=== PATIENT | female | born 1945 | race Caucasian/White ===

== ENCOUNTER 2019-01-04 13:33 | Outpatient (CLI) | payer MEDICARE ==
--- NOTE | 2019-01-04 15:17 | BD ---
DEXA BONE DENSITY SCAN: DATE: 01/04/2019. COMPARISON: None. HISTORY: Postmenopausal female undergoing screening for osteoporosis. FINDINGS: Lumbar Spine: BMD (g/cm2) L1 0.842 T-Score: -1.3 L2 0.857 T-Score: -1.6 L3 0.902 T-Score: -1.7 L4 0.930 T-Score: -1.2 L1-L4 0.888 T-Score: -1.4 Femoral Neck: 0.657 T-Score: -1.7 Total Femur: 0.839 T-Score: -0.8 The FRAX-WHO fracture risk assessment tool reports a 10-year fracture risk in an untreated patient at 10% for a major osteoporotic fracture and 1.9% for a hip fracture. Impression: Lumbar spine and femoral neck osteopenia, correlating with a moderately increased risk for fracture. POS: OFF
== END 2019-01-04 13:34 | disposition home or self-care (01) ==
LOC: BICMAMMO 13:33
PROVIDERS: ATTEND Internal Medicine
DX: Z13.820 Encounter for screening for osteoporosis (principal); M85.89 Other specified disorders of bone density and structure, multiple sites; Z78.0 Asymptomatic menopausal state
CPT/HCPCS: 77080

== ENCOUNTER 2020-04-06 13:14 | Outpatient (CLI) | payer MEDICARE ==
--- NOTE | 2020-04-06 15:34 | CT ---
CT CHEST WITHOUT CONTRAST: Date: 04/06/2020 PROVIDED CLINICAL HISTORY: Personal history of nicotine dependence, low dose screening. COMPARISON: 11/26/2013. FINDINGS: The heart, pericardium, and great vessels are suboptimally evaluated in the absence of IV contrast ma terial. Vascular calcification including coronary calcium is demonstrated. Conspicuous by number but not pathologically enlarged mediastinal lymph node are demonstrated, simila r to the prior study. The airway appears patent and of normal caliber. Centrilobular emphysematous changes are seen. There are clustered micronodules present within the sup erior segment of the right upper lobe, similar to the prior examination. There is biapical pleural pa renchymal scarring demonstrated. There is no pleural fluid or pneumothorax evident. Bilateral breast implants are demonstrated with evidence for bilateral intracapsular rupture. The visualized portions of the upper abdomen demonstrate an unremarkable unenhanced CT appearance. The osseous structures demonstrate no concerning lytic or blastic lesions. IMPRESSION: Lung-RADS 2 - Benign findings. Continue annual screening. POS: MONIQUE
== END 2020-04-06 13:15 | disposition home or self-care (01) ==
LOC: BICCT 13:14
PROVIDERS: ATTEND Internal Medicine
DX: Z12.2 Encounter for screening for malignant neoplasm of respiratory organs (principal); Z87.891 Personal history of nicotine dependence
CPT/HCPCS: G0297